=== PATIENT | male | born 1980 | race Caucasian/White ===

== ENCOUNTER → 2017-03-05 | Outpatient (CLI) | payer OTHER ==
[~2017-03-05] MED LIST: CEPHALEXIN500 M1 PO; FLEXERIL5 MG PO; NKHM
[2017-03-05 13:59] LABS: URINE AMPHETAMINES < 1000 (1000ng/ml); URINE BARBITURATES < 200 (200ng/ml); URINE COCAINE < 300 (300ng/ml)
== END | disposition home or self-care (01) ==
LOC: LAB 13:16
PROVIDERS: Internal Medicine
DX: F11.20 Opioid dependence, uncomplicated (principal)

== ENCOUNTER 2019-11-18 21:17 | Emergency (ER) | payer SELFPAY | END 2019-11-18 21:25 | disposition left against medical advice (07) | LOC: ED 21:17 | DX: T40.1X1A Poisoning by heroin, accidental (unintentional), initial encounter (principal); R40.20 Unspecified coma; Z53.21 Procedure and treatment not carried out due to patient leaving prior to being seen by health care provider; Y92.89 Other specified places as the place of occurrence of the external cause ==

== ENCOUNTER 2020-08-06 14:42 | Emergency (ER) | payer SELFPAY ==
[2020-08-06 15:23] LABS: BASO % 0.3 % (0.0-1.0); EOS # 0.1 10*3/uL (0.0-0.4); HEMATOCRIT 40.7 % (42.0-52.0); LYMPH # 0.9 10*3/uL (1.3-4.4); LYMPH % 10.1 % (27.0-41.0); MEAN CELL VOLUME 88.3 fl (80.0-94.0); MEAN CORPUSCULAR HGB 29.7 pg (27.0-31.0); MEAN CORPUSCULAR HGB CONC 33.7 g/dl (33.0-37.0); MEAN PLATELET VOLUME 10.3 fl (9.6-12.3); MONO # 0.1 10*3/uL (0.1-1.0); MONO % 0.8 % (3.0-9.0); NEUT # 8.1 10*3/uL (2.3-7.9); NEUT % 87.4 % (47.0-73.0); PLATELET COUNT AUTOMATED 230 10*3/uL (130-400); RED BLOOD COUNT 4.61 10*6/uL (4.50-5.90); RED CELL DISTRI WIDTH 14.6 % (0-14.5); WHITE BLOOD COUNT 9.2 10*3/uL (4.8-10.8)
[2020-08-06 15:47] LABS: ALBUMIN 3.4 gm/dl (3.1-4.5); ALKALINE PHOSPHATASE 114 U/L (45-117); BUN 11 mg/dl (7-24); CHLORIDE 109 mmol/L (98-107); CPK 81 U/L (39-308); POTASSIUM 3.8 mmol/L (3.5-5.1); SGOT/AST 39 IU/L (3-35); SGPT/ALT 55 U/L (12-78); SODIUM 136 mmol/L (136-145); TOTAL PROTEIN 7.2 gm/dL (6.4-8.2)
[2020-08-06 15:47] LABS: CLARITY CLEAR (CLEAR); COLOR DARK YELLOW (YELLOW)
[2020-08-06 15:48] LABS: BILIRUBIN NEGATIVE; BLOOD NEGATIVE (NEGATIVE); GLUCOSE NEGATIVE; KETONE NEGATIVE; LEUKO ESTERASE NEGATIVE (NEGATIVE); NITRITE NEGATIVE (NEGATIVE); SPECIFIC GRAVITY > 1.030 (1.001-1.030)
[2020-08-06 15:51] LABS: URINE AMPHETAMINES > 1000 (1000ng/ml); URINE BARBITURATES < 200 (200ng/ml); URINE BENZODIAZEPINES > 200 (200ng/ml); URINE CANNABINOIDS (THC) < 50 (50ng/ml); URINE COCAINE > 300 (300ng/ml); URINE METHADONE < 300 (300ng/ml); URINE OPIATES > 300 (300ng/ml)
[2020-08-06 15:53] LABS: ETHYL ALCOHOL < 3.0 mg/dl (<3); TROPONIN I < 0.015 ng/ml (<0.045)
[2020-08-06 15:53] LABS: URINE PHENCYCLIDINE < 25 (25ng/ml)
[2020-08-06 16:19] LABS: BACTERIA 1+; CALCIUM OXALATE CRYSTALS 3+; RBC 21-30 rbc/hpf (0-2)
== END 2020-08-06 16:19 | disposition left against medical advice (07) ==
LOC: ED 14:42
PROVIDERS: Emergency Medicine
DX: T40.1X1A Poisoning by heroin, accidental (unintentional), initial encounter (principal); F11.90 Opioid use, unspecified, uncomplicated; Z53.29 Procedure and treatment not carried out because of patient's decision for other reasons; Z79.899 Other long term (current) drug therapy; Y92.89 Other specified places as the place of occurrence of the external cause

== ENCOUNTER 2020-08-08 14:57 | Observation (INO) | payer SELFPAY ==
[~2020-08-08] VITALS: Ht 190.5 cm; Wt 92.2 kg
[2020-08-08 15:08] VITALS: BP 132/90
[2020-08-08 15:31] LABS: HEMATOCRIT 46.7 % (42.0-52.0); MEAN CELL VOLUME 94.5 fl (80.0-94.0); MEAN CORPUSCULAR HGB CONC 31.7 g/dl (33.0-37.0); PLATELET COUNT AUTOMATED 210 10*3/uL (130-400); RED BLOOD COUNT 4.94 10*6/uL (4.50-5.90); RED CELL DISTRI WIDTH 14.8 % (0-14.5); WHITE BLOOD COUNT 8.7 10*3/uL (4.8-10.8)
[2020-08-08 15:55] LABS: ALBUMIN 3.5 gm/dl (3.1-4.5); ALKALINE PHOSPHATASE 149 U/L (45-117); BUN 10 mg/dl (7-24); CHLORIDE 116 mmol/L (98-107); CREATININE 1.25 mg/dL (0.70-1.30); POTASSIUM 4.5 mmol/L (3.5-5.1); SGOT/AST 87 IU/L (3-35); SGPT/ALT 86 U/L (12-78); SODIUM 145 mmol/L (136-145); TOTAL PROTEIN 7.6 gm/dL (6.4-8.2)
[2020-08-08 15:57] LABS: ETHYL ALCOHOL < 3.0 mg/dl (<3)
[2020-08-08 16:10] LABS: BASOPHILS 1 % (0-1); PLATELET SUFFICIENCY NORMAL (NORMAL); TOTAL CELLS COUNTED 100 #CELLS
[2020-08-08 16:13] LABS: BURR CELLS MODERATE
[2020-08-08 17:10] LABS: TROPONIN I 0.026 ng/ml (<0.045)
[2020-08-08 18:56] VITALS: BP 140/88
[2020-08-08 20:05] VITALS: BP 141/90
[2020-08-08] MEDS ORDERED: SEROQUEL300 MG PO (20:32)
[2020-08-08 20:44] LABS: URINE AMPHETAMINES > 1000 (1000ng/ml); URINE BARBITURATES < 200 (200ng/ml); URINE BENZODIAZEPINES < 200 (200ng/ml); URINE CANNABINOIDS (THC) < 50 (50ng/ml); URINE COCAINE < 300 (300ng/ml); URINE METHADONE < 300 (300ng/ml); URINE OPIATES < 300 (300ng/ml)
[2020-08-08 20:47] LABS: URINE PHENCYCLIDINE < 25 (25ng/ml)
[2020-08-08 20:51] LABS: BILIRUBIN NEGATIVE; BLOOD NEGATIVE (NEGATIVE); CLARITY CLOUDY (CLEAR); COLOR YELLOW (YELLOW); GLUCOSE NEGATIVE; KETONE NEGATIVE; LEUKO ESTERASE NEGATIVE (NEGATIVE); NITRITE NEGATIVE (NEGATIVE); RBC 0-2 rbc/hpf (0-2); SPECIFIC GRAVITY 1.025 (1.001-1.030)
[2020-08-09] VITALS: BP 117/62
[2020-08-09 06:03] LABS: ALBUMIN 2.9 gm/dl (3.1-4.5); ALKALINE PHOSPHATASE 105 U/L (45-117); BUN 7 mg/dl (7-24); CHLORIDE 110 mmol/L (98-107); CREATININE 0.96 mg/dL (0.70-1.30); POTASSIUM 3.9 mmol/L (3.5-5.1); SGOT/AST 39 IU/L (3-35); SGPT/ALT 61 U/L (12-78); SODIUM 139 mmol/L (136-145); TOTAL PROTEIN 6.5 gm/dL (6.4-8.2)
[2020-08-09 06:12] LABS: BASO # 0.1 10*3/uL (0.0-0.1); BASO % 0.3 % (0.0-1.0); EOS # 0.1 10*3/uL (0.0-0.4); EOS % 0.3 % (1.0-4.0); HEMATOCRIT 40.6 % (42.0-52.0); LYMPH # 2.4 10*3/uL (1.3-4.4); LYMPH % 13.3 % (27.0-41.0); MEAN CORPUSCULAR HGB 29.3 pg (27.0-31.0); MEAN PLATELET VOLUME 10.3 fl (9.6-12.3); MONO # 0.7 10*3/uL (0.1-1.0); MONO % 3.6 % (3.0-9.0); NEUT # 14.8 10*3/uL (2.3-7.9); NEUT % 82.2 % (47.0-73.0); PLATELET COUNT AUTOMATED 241 10*3/uL (130-400); RED BLOOD COUNT 4.58 10*6/uL (4.50-5.90); RED CELL DISTRI WIDTH 14.7 % (0-14.5)
[2020-08-09 06:20] LABS: MEAN CELL VOLUME 88.6 fl (80.0-94.0)
[2020-08-09 08:00] VITALS: BP 118/78
[2020-08-09 12:00] VITALS: BP 134/80
== END 2020-08-09 14:26 | disposition home or self-care (01) ==
LOC: ED 14:57 → EDHOLD 19:02 → 4E 19:36 → 5E 23:26 → 4E 23:28
PROVIDERS: Emergency Medicine; Internal Medicine; ADMIT Student in an Organized Health Care Education/Training Program; ATTEND Student in an Organized Health Care Education/Training Program
DX: T40.601A Poisoning by unspecified narcotics, accidental (unintentional), initial encounter (principal); R00.0 Tachycardia, unspecified; R06.82 Tachypnea, not elsewhere classified; R07.89 Other chest pain; D72.829 Elevated white blood cell count, unspecified; D64.9 Anemia, unspecified; E87.8 Other disorders of electrolyte and fluid balance, not elsewhere classified; E83.39 Other disorders of phosphorus metabolism; E43 Unspecified severe protein-calorie malnutrition; F15.10 Other stimulant abuse, uncomplicated; F17.210 Nicotine dependence, cigarettes, uncomplicated; Y92.89 Other specified places as the place of occurrence of the external cause

== ENCOUNTER 2024-03-17 14:51 | Emergency (ER) | payer MEDICAID ==
[~2024-03-17 14:51] MED LIST changes: +SEROQUEL300 MG PO
== END 2024-03-17 15:10 | disposition left against medical advice (07) ==
LOC: ED 14:51
DX: T40.601A Poisoning by unspecified narcotics, accidental (unintentional), initial encounter (principal); Z53.29 Procedure and treatment not carried out because of patient's decision for other reasons; F17.200 Nicotine dependence, unspecified, uncomplicated; Y92.89 Other specified places as the place of occurrence of the external cause

== ENCOUNTER 2024-05-09 11:45 | Emergency (ER) | payer OTHER ==
[~2024-05-09] VITALS: Ht 190.5 cm; Wt 97.5 kg
[2024-05-09] MEDS ORDERED: SUBOXONE 8 MG-1 EACH BC (12:12)
== END 2024-05-09 12:28 | disposition home or self-care (01) ==
LOC: ED 11:45
DX: T40.601A Poisoning by unspecified narcotics, accidental (unintentional), initial encounter (principal); R40.4 Transient alteration of awareness; F17.200 Nicotine dependence, unspecified, uncomplicated; Y92.89 Other specified places as the place of occurrence of the external cause

== ENCOUNTER 2024-07-20 21:04 | Emergency (ER) | payer OTHER ==
[~2024-07-20 21:04] MED LIST changes: +SUBOXONE 8 MG-1 EACH BC
[2024-07-20] MEDS ORDERED: LORazepam 2 MG/ML VIAL IV ONE (21:10)
== END 2024-07-20 22:25 | disposition home or self-care (01) ==
LOC: ED 21:04
DX: T50.901A Poisoning by unspecified drugs, medicaments and biological substances, accidental (unintentional), initial encounter (principal); F17.200 Nicotine dependence, unspecified, uncomplicated; F11.10 Opioid abuse, uncomplicated; Y92.009 Unspecified place in unspecified non-institutional (private) residence as the place of occurrence of the external cause

== ENCOUNTER 2025-08-17 17:15 | Emergency (ER) | payer OTHER ==
[~2025-08-17] VITALS: Wt 98.9 kg
== END 2025-08-17 17:38 | disposition home or self-care (01) ==
LOC: ED 17:15
DX: F43.20 Adjustment disorder, unspecified (principal)

== ENCOUNTER 2025-11-09 16:27 | Emergency (ER) | payer OTHER ==
[~2025-11-09] VITALS: Ht 190.5 cm; Wt 124.7 kg
[2025-11-09 16:49] LABS: BASO # 0.1 10*3/uL (0.0-0.1); BASO % 1.3 % (0.0-1.0); EOS # 0.5 10*3/uL (0.0-0.4); EOS % 6.4 % (1.0-4.0); MEAN CELL VOLUME 87.3 fl (80.0-94.0); MEAN CORPUSCULAR HGB 29.4 pg (27.0-31.0); MEAN PLATELET VOLUME 9.5 fl (9.6-12.3); MONO # 0.4 10*3/uL (0.1-1.0); MONO % 5.4 % (3.0-9.0); NEUT # 4.5 10*3/uL (2.3-7.9); NEUT % 62.7 % (47.0-73.0); NUCLEATED RED BLOOD CELL 0.0 % (0.0-0.0); NUCLEATED RED BLOOD CELL 0.0 10*3/uL (0.0-0.0); PLATELET COUNT AUTOMATED 248 10*3/uL (130-400); RED CELL DISTRI WIDTH 12.7 % (0-14.5)
[2025-11-09 17:08] LABS: BUN 12 mg/dl (9-23)
[2025-11-09] MEDS ORDERED: LORazepam 1 MG TAB PO ONE (18:35)
== END 2025-11-09 19:19 ==
LOC: ED 16:27
PROVIDERS: Nurse Practitioner Family
DX: R07.2 Precordial pain (principal); F41.1 Generalized anxiety disorder; F17.200 Nicotine dependence, unspecified, uncomplicated